=== PATIENT | female | born 1970 | race Caucasian/White ===

== ENCOUNTER 2020-08-15 20:30 | Emergency (ER) | payer OTHER ==
[~2020-08-15] VITALS: Ht 165.1 cm; Wt 56.7 kg
[2020-08-15] MEDS ORDERED: ACETAMINOPHEN 325 MG TABLET PO ONE (20:45)
[2020-08-15] MEDS ORDERED: LIDOCAINE 5% PATCH TD ONE ×2 (20:45→21:01)
--- NOTE | 2020-08-15 20:45 | NUR ---
DO Tona in room to do MSE.
--- NOTE | 2020-08-15 20:45 | NUR ---
Ksenia singh in [facility] - 08/15/20 at 2127 by MELODIE MD Carbone in room to do MSE.
--- NOTE | 2020-08-15 20:55 | NUR ---
feed [employer] lab technician in room to do x-ray on patient.
[2020-08-15] MEDS ORDERED: ACETAMINOPHEN 325 MG TABLET ONE (21:01)
--- NOTE | 2020-08-15 21:25 | NUR ---
DO Tona in room to explain results of x-ray with patient.
[2020-08-15] MEDS ORDERED: CYCL5TAB PO (21:40)
[2020-08-15] MEDS ORDERED: LIDO30AD10 TD (21:40)
[2020-08-15 21:55] VITALS: BP 152/96
--- NOTE | 2020-08-15 21:55 | NUR ---
Patient discharged to home in stable condition. Written and verbal after care instructions given. Patient verbalizes understanding of instructions. Stressed follow up or return to ER for worsening s/s. Patient ambulates with steady gait, received Rx, V/S stable, and left with all personal belongings.
== END 2020-08-15 21:55 | disposition home or self-care (01) ==
LOC: ER 20:30
DX: S13.4XXA Sprain of ligaments of cervical spine, initial encounter (principal); S43.401A Unspecified sprain of right shoulder joint, initial encounter; V43.52XA Car driver injured in collision with other type car in traffic accident, initial encounter; Y93.89 Activity, other specified; Y92.410 Unspecified street and highway as the place of occurrence of the external cause; R03.0 Elevated blood-pressure reading, without diagnosis of hypertension; R51.9 Headache, unspecified
CPT/HCPCS: 73030; A4663